=== PATIENT | female | born 1955 | race Caucasian/White ===

== ENCOUNTER 2018-08-15 16:12 | Emergency (ER) | payer BC ==
[2018-08-15 16:23] VITALS: BP 129/74
--- NOTE | 2018-08-15 16:42 | ER Document Report ---
HPI - HPI Time Seen by Provider: 08/15/18 16:27 Pain Level: 3 Context: Patient is a 62-year-old female who presents to the emergency department with a chief complaint of right foot pain. She states that last night she started to feel like she had more pain on the medial aspect of her foot. It is also on the dorsal portion of her foot. She also states that she is having some heel pain. She uses a cane to help her walk, and she is now favoring her left side. She also walks on the sides of her feet due to the pain. She has history of a stress fracture on her left side, in which she sees Dr. Claros, the new accounts representative. Past medical history includes seasonal allergies. She is currently on Mobic for her pain. - CONSTITUTIONAL Constitutional: DENIES: Fever, Chills - EENT EENT: DENIES: Sore Throat - NEURO Neurology: DENIES: Headache - CARDIOVASCULAR Cardiovascular: DENIES: Chest pain - RESPIRATORY Respiratory: DENIES: Coughing - REPRODUCTIVE Reproductive: DENIES: : - MUSCULOSKELETAL Musculoskeletal: REPORTS: Extremity pain - Right foot - DERM Skin Color: Normal Skin Problems: None Past Medical History - Social History Smoking Status: Unknown if Ever Smoked Family History: Reviewed & Not Pertinent Musculoskeletal Medical History: Reports Hx Arthritis Past Surgical History: Reports: Hx Cholecystectomy, Hx Genitourinary Surgery - ablasion, Hx Orthopedic Surgery - left arm, Hx Tonsillectomy - Immunizations Hx Diphtheria, Pertussis, Tetanus Vaccination: Yes Vertical Provider Document - CONSTITUTIONAL Agree With Documented VS: Yes Exam Limitations: No Limitations - INFECTION CONTROL TRAVEL OUTSIDE OF THE [place] IN LAST 30 DAYS: No - HEENT HEENT: Atraumatic, Normocephalic - RESPIRATORY Respiratory: No Respiratory Distress - CARDIOVASCULAR Cardiovascular: Regular Rate Pulses: Normal: Posterior tibial, Dorsalis pedis - MUSCULOSKELETAL/EXTREMETIES Musculoskeletal/Extremeties: FROM, Tender - Right foot at medial dorsal aspect of foot - NEURO Level of Consciousness: Awake, Alert, Appropriate Motor/Sensory: No Motor Deficit, No Sensory Deficit - DERM Integumentary: Warm, Dry Course - Re-evaluation Re-evalutation: 08/15/18 17:33 Patient's foot x-ray is negative for any acute fracture. She will follow-up with podiatry in regards to this visit. She will continue to take her Mobic as needed for her pain. I do not suspect a tendon injury. She is able to walk for me. Verbal discharge instructions were given to the patient. They verbalized understanding. They are stable for discharge. - Vital Signs Vital signs: Temp Pulse Resp BP Pulse Ox 98.0 F 80 16 129/74 H 96 08/15/18 16:20 08/15/18 16:20 08/15/18 16:20 08/15/18 16:20 08/15/18 16:20 Discharge - Discharge Clinical Impression: Right foot pain Condition: Stable Disposition: HOME, SELF-CARE Additional Instructions: You were seen today in the emergency department for right foot pain. Thankfully your x-ray is normal. Please follow-up with your new accounts representative in regards to your feet pain. You can take your Mobic for your pain. If you have worsening symptoms, please return to the emergency department. Referrals: WARNER CLAROS DPM [ACTIVE STAFF] - Follow up as needed
--- NOTE | 2018-08-15 17:30 | RADIOLOGY REPORT (SQ) ---
EXAM DESCRIPTION: FOOT RIGHT COMPLETE COMPLETED DATE/TIME: 08/15/2018 5:17 pm REASON FOR STUDY: rt foot pain; hx of stress fx on left COMPARISON: None. NUMBER OF VIEWS: Three views. TECHNIQUE: AP, lateral and oblique radiographic images acquired of the right foot. LIMITATIONS: None. FINDINGS: MINERALIZATION: Normal. BONES: No acute fracture or dislocation. No worrisome bone lesions. JOINTS: No effusions. SOFT TISSUES: No soft tissue swelling. No foreign body. OTHER: No other significant finding. IMPRESSION: NEGATIVE STUDY OF THE RIGHT FOOT. NO RADIOGRAPHIC EVIDENCE OF ACUTE INJURY. TECHNICAL DOCUMENTATION: JOB ID: [id number] [employer]- All Rights Reserved Reading location - IP/workstation name: [email or web address]
== END 2018-08-15 17:41 | disposition home or self-care (01) ==
LOC: ER 16:12
DX: M79.671 Pain in right foot (principal)
CPT/HCPCS: 99283

== ENCOUNTER 2018-12-14 20:51 | Emergency (ER) | payer BC ==
[2018-12-14 21:34] VITALS: BP 137/67
--- NOTE | 2018-12-15 02:03 | ER Document Report ---
HPI - HPI Patient complains to provider of: Sore throat Time Seen by Provider: 12/15/18 01:01 Pain Level: 2 Context: Patient is a 63-year-old female presents to the emergency department generalized cough, congestion, left ear pain and sore throat for the last 2 days. Patient states she has been taking [id number] Zyrtec. She is denying any fevers. Patient's denying any respiratory distress, abdominal pain, chest pain, dysuria. 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 States she takes Mobic for chronic injury to her left foot. - EENT EENT: REPORTS: Sore Throat - REPRODUCTIVE Reproductive: DENIES: : Past Medical History - General Information source: Patient - Social History Smoking Status: Never Smoker Family History: Reviewed & Not Pertinent Patient has suicidal ideation: No Patient has homicidal ideation: No Renal/ Medical History: Denies: Hx Peritoneal Dialysis Musculoskeletal Medical History: Reports Hx Arthritis Past Surgical History: Reports: Hx Cholecystectomy, Hx Genitourinary Surgery - ablasion, Hx Orthopedic Surgery - left arm, Hx Tonsillectomy - Immunizations Hx Diphtheria, Pertussis, Tetanus Vaccination: Yes Vertical Provider Document - CONSTITUTIONAL Agree With Documented VS: Yes Notes: GENERAL: Alert, interacts well. No acute distress. HEAD: Normocephalic, atraumatic. EYES: Pupils equal, round, and reactive to light. Extraocular movements intact. ENT: Oral mucosa moist, tongue midline. Nares patent, swollen turbinates noted bilaterally, TM's intact, nonerythematous, nonbulging bilaterally. Pharynx minorly erythematous no palatal petechiae noted. NECK: Full range of motion. Supple. Trachea midline. No lymphadenopathy appreciated no nuchal rigidity noted LUNGS: Clear to auscultation bilaterally, no wheezes, rales, or rhonchi. No respiratory distress. HEART: Regular rate and rhythm. No murmur ABDOMEN: Soft, non-tender. Non-distended. Bowel sounds present in all 4 quadrants. EXTREMITIES: Moves all 4 extremities spontaneously. No edema, normal radial and dorsalis pedis pulses bilaterally. No cyanosis. BACK: no cervical, thoracic, lumbar midline tenderness. No saddle anesthesia, normal distal neurovascular exam. NEUROLOGICAL: Alert and oriented x3. Normal speech. cranial nerves II through XII grossly intact. PSYCH: Normal affect, normal mood. SKIN: Warm, dry, normal turgor. No rashes or lesions noted. - INFECTION CONTROL TRAVEL OUTSIDE OF THE [place] IN LAST 30 DAYS: No Course - Re-evaluation Re-evalutation: 12/15/18 02:01 Patient's rapid strep test was negative in the emergency department. Discussed with her likely diagnosis of viral URI and viral pharyngitis. Discussed use of [id number] cold medications and nasal sprays. Patient remains afebrile, stable for discharge. At this time will discharge with return precautions and follow-up recommendations. Verbal discharge instructions given a the bedside and opportunity for questions given. Medication warnings reviewed. Patient is in agreement with this plan and has verbalized understanding of return precautions and the need for primary care follow-up in the next 24-72 hours. This medical record was dictated with voice recognizing software. There may be grammatical, syntax errors that are unintended. - Vital Signs Vital signs: Temp Pulse Resp BP Pulse Ox 98.2 F 76 20 137/67 H 97 12/14/18 21:32 12/14/18 21:32 12/14/18 21:32 12/14/18 21:32 12/14/18 21:32 Discharge - Discharge Clinical Impression: Viral pharyngitis URI (upper respiratory infection) Qualifiers: URI type: unspecified viral URI Qualified Code(s): J06.9 - Acute upper respiratory infection, unspecified Condition: Stable Disposition: HOME, SELF-CARE Instructions: Sore Throat ([facility]), Upper Respiratory Illness ([facility]), Viral Syndrome ([facility]) Additional Instructions: Your symptoms are most likely due to a viral infection it should resolve over the next 7-14 days. You should take xvvu-[id number]-[id number] guanfacine per bottle instructions to help thin the mucus. You may also use ibuprofen as needed for aches and thorat discomfort. Please be sure to drink plenty of fluids and get rest. Return to the emergency department he began having difficulty breathing, chest pain, persistent vomiting, or any other symptoms that are concerning to you. Prescriptions: Mometasone Furoate [Nasonex] 1 spray NS Q12 #1 spray.pump Forms: Return to Work
== END 2018-12-15 02:20 | disposition home or self-care (01) ==
LOC: ER 20:51
DX: J02.9 Acute pharyngitis, unspecified (principal); B34.9 Viral infection, unspecified; J06.9 Acute upper respiratory infection, unspecified; H92.02 Otalgia, left ear; Z90.49 Acquired absence of other specified parts of digestive tract
CPT/HCPCS: 87070; 87880; 99283